=== PATIENT | female | born 1935 | race Two or more races ===

== ENCOUNTER 2016-11-13 15:55 | Emergency (ER) | payer MEDICARE, MEDICAID ==
[~2016-11-13] VITALS: Ht 162.6 cm; Wt 54.4 kg
--- NOTE | 2016-11-13 16:15 | NUR ---
Pt and daughter unable to provide information about current medications at this time.
[2016-11-13] MEDS ORDERED: ELIQUIS (16:25)
--- NOTE | 2016-11-13 16:38 | NUR ---
Pt c/o urinary frequency with very little to no ouput. Denies pain, n/v/d. No other acute complaints, no distress noted.
[2016-11-13 17:41] LABS: CARBON DIOXIDE 34 mmol/L (21-32); CHLORIDE 99 mmol/L (98-107); CREATININE 1.1 mg/dL (0.6-1.3); GLUCOSE 93 mg/dL (74-106); POTASSIUM 3.8 mmol/L (3.5-5.1); UREA NITROGEN, BLOOD 16 mg/dL (7-18)
[2016-11-13 17:47] LABS: BASOPHILS # (AUTO) 0.1 K/uL (0.0-8.0); BASOPHILS % (AUTO) 0.7 % (0.0-2.0); EOSINOPHILS # (AUTO) 0.2 K/uL (0.0-0.7); EOSINOPHILS % (AUTO) 1.8 % (0.0-7.0); HEMATOCRIT 31.8 % (37-47); HEMOGLOBIN 10.4 G/DL (12.0-16.0); LYMPHOCYTES # (AUTO) 1.5 K/UL (0.8-4.8); LYMPHOCYTES % (AUTO) 17.4 % (20.5-51.5); MEAN CORPUSCULAR HGB CONC 33 g/dL (32.0-37.0); MEAN CORPUSCULAR VOLUME 82.2 FL (81.0-99.0); MONOCYTES # (AUTO) 0.7 K/UL (0.1-1.30); MONOCYTES % (AUTO) 8.1 % (0.0-11.0); NEUTROPHILS # (AUTO) 5.9 K/UL (1.8-8.9); PLATELET COUNT (AUTO) 314 K/UL (150-450); RED BLOOD CELL COUNT(AUTO) 3.87 MIL/UL (4.2-5.4); WHITE BLOOD COUNT (AUTO) 8.4 K/UL (4.0-11.2)
[2016-11-13 17:54] LABS: ALANINE AMINOTRANSFERASE 11 U/L (14-59); ALKALINE PHOSPHATASE 67 U/L (50-136); ASPARTATE AMINOTRANSFERASE 18 U/L (15-37); BILIRUBIN,DIRECT 0.1 mg/dL (0.0-0.2); BILIRUBIN,TOTAL 0.3 mg/dL (0.2-1.0)
[2016-11-13] MEDS ORDERED: IV NORMAL SALINE 500 ML BAG IV ONE (18:15)
--- NOTE | 2016-11-13 18:37 | NUR ---
Pt still not able to give urine sample. Pt's daughter translating: Pt refusing catheter.
--- NOTE | 2016-11-13 19:07 | NUR ---
Gave pt sample cup for collection of urine at home tonight. Pt's daughter, translating, signed AMA form. Gave her RX and other d/c instructions, verbalized understanding, states she will bring pt back tomorrow.
== END 2016-11-13 19:34 | disposition left against medical advice (07) ==
LOC: ER 15:56
DX: R35.0 Frequency of micturition (principal); R41.82 Altered mental status, unspecified; J18.9 Pneumonia, unspecified organism
CPT/HCPCS: 36415; 70030-TC; 71010; 83605; 84443; 85025; 85730; 87040; 93005; A4663

== ENCOUNTER 2017-05-10 12:04 | Emergency (ER) | payer MEDICARE, MEDICAID ==
[~2017-05-10] VITALS: Ht 165.1 cm; Wt 63.5 kg
[~2017-05-10 12:04] MED LIST: ELIQUIS
--- NOTE | 2017-05-10 13:00 | NUR ---
Pt ambulated to restroom with assist, unable to void at this time, unable to obtain urine specimen, Dr. Jimenez notified.
[2017-05-10 13:11] LABS: BASOPHILS % (AUTO) 0.4 % (0.0-2.0); EOSINOPHILS # (AUTO) 0.1 K/uL (0.0-0.7); EOSINOPHILS % (AUTO) 1.9 % (0.0-7.0); HEMATOCRIT 32.8 % (37-47); HEMOGLOBIN 10.9 G/DL (12.0-16.0); LYMPHOCYTES # (AUTO) 1.7 K/UL (0.8-4.8); LYMPHOCYTES % (AUTO) 23.1 % (20.5-51.5); MEAN CORPUSCULAR HEMOGLOBIN 27.7 UUG (27.0-31.0); MEAN CORPUSCULAR HGB CONC 33 g/dL (32.0-37.0); MEAN CORPUSCULAR VOLUME 83.9 FL (81.0-99.0); MONOCYTES # (AUTO) 0.7 K/UL (0.1-1.30); MONOCYTES % (AUTO) 9.5 % (0.0-11.0); NEUTROPHILS # (AUTO) 4.8 K/UL (1.8-8.9); NEUTROPHILS % (AUTO) 65.1 % (38.5-71.5); PLATELET COUNT (AUTO) 277 K/UL (150-450); RED BLOOD CELL COUNT(AUTO) 3.92 MIL/UL (4.2-5.4); WHITE BLOOD COUNT (AUTO) 7.3 K/UL (4.0-11.2)
[2017-05-10 13:18] LABS: CARBON DIOXIDE 30 mmol/L (21-32); CHLORIDE 95 mmol/L (98-107); CREATININE 1.3 mg/dL (0.6-1.3); POTASSIUM 4.3 mmol/L (3.5-5.1); UREA NITROGEN, BLOOD 16 mg/dL (7-18)
[2017-05-10 13:24] LABS: ALANINE AMINOTRANSFERASE 12 U/L (14-59); ALKALINE PHOSPHATASE 57 U/L (50-136); ASPARTATE AMINOTRANSFERASE 14 U/L (15-37); BILIRUBIN,TOTAL 0.3 mg/dL (0.2-1.0); CREATINE KINASE, TOTAL 32 U/L (26-192); GLUCOSE 87 mg/dL (74-106); TOTAL PROTEIN, SERUM 6.7 g/dL (6.4-8.2)
[2017-05-10] MEDS ORDERED: SITA1TAB2 PO (14:20)
[2017-05-10] MEDS ORDERED: NEOM15CR4 TP (14:20)
[2017-05-10] MEDS ORDERED: OMEP40CA37 PO (14:20)
[2017-05-10] MEDS ORDERED: DOCU100C36 PO (14:20)
[2017-05-10] MEDS ORDERED: GABA-534 PO (14:20)
[2017-05-10] MEDS ORDERED: CILO50TA PO (14:20)
[2017-05-10] MEDS ORDERED: LORA1TAB PO (14:20)
[2017-05-10] MEDS ORDERED: OLOP2.5D5 EACHEYE (14:20)
[2017-05-10] MEDS ORDERED: ZOLP5TAB8 PO (14:20)
[2017-05-10] MEDS ORDERED: TOLT4CAP PO (14:20)
[2017-05-10] MEDS ORDERED: FLUO20TA28 PO (14:20)
[2017-05-10] MEDS ORDERED: NYST15CR TP (14:20)
--- NOTE | 2017-05-10 15:00 | NUR ---
Patient discharged to home in stable conditon with family. Written and verbal after care instructions given. Patient verbalizes understanding of instructions. Stressed follow up with pmd or return to ER for worsening s/s.
[2017-05-10 15:14] LABS: *BILIRUBIN,URIN NEGATIVE (NEGATIVE); *BLOOD, URINE Trace-intact (NEGATIVE); *CLARITY,URINE CLOUDY (CLEAR); *COLOR,URINE YELLOW (YELLOW); *KETONES,URINE TRACE (NEGATIVE); *PROTEIN,URINE NEGATIVE (NEGATIVE); *UROBILINOGEN,URINE 0.2 E.U./dl (NORMAL); LEUKOCYTE ESTERASE ,URINE 2+ (NEGATIVE); NITRITE, URINE POSITIVE (NEGATIVE); UGLUCOSE NEGATIVE (NEGATIVE)
[2017-05-10 15:45] LABS: BACTERIA,URINE MANY /HPF (NONE SEEN); RBC,URINE 0-3 /HPF (0-3); SQUAMOUS EPITHELIAL CELL,UR FEW /HPF (NONE SEEN); WBC,URINE 20-50 /HPF (0-3)
== END 2017-05-10 15:09 | disposition home or self-care (01) ==
LOC: ER 12:09
DX: J40 Bronchitis, not specified as acute or chronic (principal); J90 Pleural effusion, not elsewhere classified; F32.9 Major depressive disorder, single episode, unspecified; Z79.01 Long term (current) use of anticoagulants
CPT/HCPCS: 36415; 71010; 80053; 81001; 82550; 84484; 85025; 85610; 93005; 99285; A4663; 70030-TC